=== PATIENT | male | born 1995 | race Caucasian/White ===

== ENCOUNTER 2018-04-03 18:17 | Emergency (ER) | payer OTHER, SELFPAY ==
[2018-04-03 18:18] VITALS: BP 148/106; PULSE 93; RESP 16; TEMP 36.1; O2SAT 99; BMI 37.8
--- NOTE | 2018-04-03 19:02 | ED.RN ---
mail handlers supervisor with pt in triage. mail handlers supervisor states pt does not need to be tested.
--- NOTE | 2018-04-03 19:36 | ED.VISSUMM ---
- ER Visit Summary Date of Service: 04/03/18 Chief Complaint: Left hand laceration History of Present Illness: The patient is a 23 M presenting secondary to a left hand laceration. Patient reports that about 12 hours ago he suffered a laceration to his left hand. He is up-to-date on his tetanus. Patient denies any numbness or weakness. He is right-hand dominant. Physical Examination: Left hand exam shows evidence of approximately a 2 cm laceration that is deep on the radial portion and superficial on the ulnar portion of the hyperthenar palm. Normal flexion and extension of the fingers normal capillary refill normal distal sensation. Test Results: None indicated Emergency Department Course and Treatment: Patient presented secondary to a laceration. Wound is at the outer limits of when this can be safely sutured I did inform the patient of this, but is right at the 12-hour mecca so I still believe that suture repair rather than healing by secondary attention is appropriate. Patient's wound was anesthetized with 10 cc 1% lidocaine. Wound was copiously irrigated with saline and was explored through full range of motion I was not able to identify any sort of deep structure injury or foreign bodies. Wound was then approximated using running sutures, 4-0 nylon suture was used and a total of 6 sutures were placed with good hemostasis and good approximation. Patient will follow up with [facility] for suture removal in 5-7 days. Disposition: Discharge Impression: 1. 2 cm left palm laceration 2. Laceration repair by ED physician This note was generated with [employer] dictation software. It may contain incorrect words, spelling, and punctuation that were not noted in review of the chart prior to signing ED Disposition - Plan for ED Patient: Disposition: Home or Assisted Living Chief Complaint: Laceration Diagnosis: Hand laceration Instructions: ED Laceration All Referrals: [facility] [GROUP OF PHYSICIANS] - 7 Days for suture removal
== END 2018-04-03 19:50 | disposition home or self-care (01) ==
PROVIDERS: Emergency Provider Emergency Medicine
DX: S61.412A Laceration without foreign body of left hand, initial encounter (principal); W26.8XXA Contact with other sharp object(s), not elsewhere classified, initial encounter; Y93.9 Activity, unspecified
CPT/HCPCS: 12001; 99284